=== PATIENT | female | born 1950 | race Caucasian/White ===

== ENCOUNTER 2016-10-31 01:37 | Emergency (ER) | payer BC ==
[2016-10-31 02:18] LABS: BASOPHILS 0.1 % (0.0-2.0); EOSINOPHILS 2.8 % (0-7); HEMATOCRIT 35.1 % (36.0-48.0); HEMOGLOBIN 11.9 g/dL (12-16); IMMATURE GRANULOCYTES 0.3 % (0-5); LYMPHOCYTES 5.5 % (15-50); MCH 29.7 pg (26.0-34.0); MCHC 33.9 g/dL (31.0-37.0); MCV 87.5 fL (80.0-100.0); MONOCYTES 5.8 % (2-11); NEUTROPHILS 85.5 % (40-80); PLATELET COUNT 298 10x3/uL (130-400); RBC 4.01 10x6/uL (4.00-5.40); RDW 13.8 % (11.5-14.5); WBC 14.3 10x3/uL (4.8-10.8)
[2016-10-31 02:28] LABS: ALBUMIN 3.1 g/dL (3.4-5.0); ALKALINE PHOSPHATASE 85 U/L (46-116); ALT (SGPT) 35 U/L (10-68); CALC OSMOLALITY 260 mosm/kg (275-300); CALCIUM 8.8 mg/dL (8.5-10.1); CARBON DIOXIDE 26.5 mmol/L (21.0-32.0); CHLORIDE - SERUM 94 mmol/L (98-107); CREATININE - SERUM 0.7 mg/dL (0.6-1.3); GLUCOSE 151 mg/dL (74-106); POTASSIUM - SERUM 3.8 mmol/L (3.5-5.1); PROTEIN - SERUM 7.4 g/dL (6.4-8.2); SODIUM 129 mmol/L (136-145); UREA NITROGEN 11 mg/dL (7-18); eGFR NON AFRICAN AMERICAN 89 mL/min (90-120)
[2016-10-31 02:36] LABS: C-REACTIVE PROTEIN 15.6 mg/dL (0.0-0.9); THYROID STIMULATING HORMONE 1.63 uIU/mL (0.36-3.74); URIC ACID 3.4 mg/dL (2.6-7.2)
== END 2016-10-31 02:58 | disposition home or self-care (01) ==
LOC: D.ER 01:37
PROVIDERS: Emergency Medicine
DX: M25.50 Pain in unspecified joint (principal); I10 Essential (primary) hypertension; F32.9 Major depressive disorder, single episode, unspecified

== ENCOUNTER 2016-11-10 13:18 | Emergency (ER) | payer BC ==
[2016-11-10 15:10] LABS: BASOPHILS 0.1 % (0.0-2.0); EOSINOPHILS 2.1 % (0-7); HEMOGLOBIN 12.7 g/dL (12-16); IMMATURE GRANULOCYTES 0.6 % (0-5); LYMPHOCYTES 7.2 % (15-50); MCHC 33.4 g/dL (31.0-37.0); MCV 89.6 fL (80.0-100.0); MEAN PLATELET VOLUME 9.2 fL (7.4-10.4); MONOCYTES 5.6 % (2-11); NEUTROPHILS 84.4 % (40-80); PLATELET COUNT 324 10x3/uL (130-400); RBC 4.24 10x6/uL (4.00-5.40); RDW 14.3 % (11.5-14.5); WBC 15.5 10x3/uL (4.8-10.8)
[2016-11-10 15:24] LABS: ALBUMIN 3.3 g/dL (3.4-5.0); ANION GAP 11.4 mmol/L (8-16); BILIRUBIN - TOTAL 0.66 mg/dL (0.2-1.3); CARBON DIOXIDE 28.1 mmol/L (21.0-32.0); CREATININE - SERUM 0.9 mg/dL (0.6-1.3); POTASSIUM - SERUM 4.5 mmol/L (3.5-5.1); PROTEIN - SERUM 7.7 g/dL (6.4-8.2)
[2016-11-10 15:25] LABS: APPEARANCE CLEAR (CLEAR); BILIRUBIN NEGATIVE (NEGATIVE); COLOR YELLOW (YELLOW); GLUCOSE NEGATIVE (NEGATIVE); KETONE NEGATIVE (NEGATIVE); LEUKOCYTE ESTERASE NEGATIVE (NEGATIVE); NITRITE NEGATIVE (NEGATIVE); PROTEIN NEGATIVE (NEGATIVE); UROBILINOGEN NORMAL (NORMAL)
== END 2016-11-10 19:31 | disposition home or self-care (01) ==
LOC: D.ER 13:18
PROVIDERS: Emergency Medicine
DX: M79.662 Pain in left lower leg (principal); M79.661 Pain in right lower leg; M19.91 Primary osteoarthritis, unspecified site; F32.9 Major depressive disorder, single episode, unspecified; I10 Essential (primary) hypertension

== ENCOUNTER 2017-05-02 07:00 | Outpatient (CLI) | payer MEDICARE, OTHER ==
[~2017-05-02] VITALS: Ht 167.6 cm; Wt 113.6 kg
--- NOTE | ~2017-05-02 | HEMODYNAMI ---
PATIENT:ELISA MIGUEL MEDICAL RECORD: [id number] : 54 LOCATION:[facility] ADMISSION DATE: 05/02/17 Generatedon:05/02/201711:07 Patient name: ELISA MIGUEL Patient #: [id number] SSN: : 1950 Date of study: 05/02/2017 Page: Of Hemodynamic Procedure Report Patient Data Patient Demographics Procedure consent was obtained First Name: ELISA Gender: Female Last Name: MYRIAM : 1950 [facility] Initial: K Age: 67 year(s) Patient #: [id number] Race: Unknown Additional ID: [id number] Contact details [address]: [address] [place] [address] State: [place] City: [place] Zip code: [address] Past Medical History Allergies: No known allergies Admission Admission Data Admission Date: 05/02/2017 Admission Time: 7:00 Admit Source: Other Height (in.): 66 BSA: 2.2 (m2) Height (cm.): 167.64 BMI: 40.42 (kg/m2) Weight (lbs.): 250.45 Weight (kg.): 113.6 Lab Results Lab Result Date: 05/02/2017 Lab Result Time: 8:02 Biochemistry Name Units Result Min Max BUN mg/dl 11 --(-*--)-- 7 18 Creatinine mg/dl 0.8 --(-*--)-- 0.6 1.3 CBC Name Units Result Min Max Hematocrit % 32.4 *-(----)-- 42 54 Hemoglobin g/dl 11 *-(----)-- 13.5 17.5 Procedure Procedure Types Cath Procedure Diagnostic Procedure [facility] w/Coronaries Miscellaneous Procedures Moderate Sedation up to 30 minutes Procedure Description Procedure Date Procedure Date: 05/02/2017 Procedure Start Time: 10:50 Procedure End Time: 11:05 Procedure Staff Name Function Shashank Latham MD Performing Physician Drea Finn RT Scrub Sudha Connelly RT Scrub Buffie Daugherty RN Nurse Max Law RT Monitor Procedure Data Cath Procedure Fluoroscopy Diagnostic fluoroscopy Total fluoroscopy Time: 1.3 time: 1.3 min min Diagnostic fluoroscopy Total fluoroscopy dose: 466 dose: 466 mGy mGy Contrast Material Contrast Material Type Amount (ml) Isovue 300 37 Entry Location Entry Primary Successful Side Size Upsize Upsize Entry Closure Succes sful Closure Location (Fr) 1 (Fr) 2 (Fr) Remarks Device Remarks Femoral Right 5 Fr Exoseal artery Estimated blood loss: 5 ml Diagnostic catheters Device Type Used For End Catheter Placement Cordis 5Fr JL 4.0 Procedure Catheter (MP) Cordis 5Fr 3DRC Catheter Procedure (MP) Cordis 5Fr Pigtail Procedure Catheter (MP) Procedure Complications No complications Procedure Medications Medication Administration Route Dosage Oxygen NC 2 l/min 0.9% NaCl I.V. 100 ml/hr Heparin Flush Bag added to field 2 bags (1000units/500ml NS) Versed I.V. 2 mg Fentanyl I.V. 25 mcg Hemodynamics Rest BSA: 2.2 (m2) O2 Consumption: Estimated: 205.13 (ml/min) O2 Consumption indexed: Estimated:93.24 (ml/min/m) Heart Rate: 69 (bpm) Pressure Samples Time Site Value (mmHg) Purpose Heart Use Rate(bpm) 10:59 LV 124/-2,19 EDP 75 11:00 AO 127/56(85) Pullback 70 11:00 LV 109/9,15 Pullback 70 Gradients Valve Time Site 1 Site 2 Mean SEP/DFP Peak To Heart Use (mmHg) (sec/min) Peak Rate (mmHg) (bpm) Aortic 11:00 LV AO 0 9 0 70 109/9,15 127/56(85) Calculations Valve P-P Mean Valve Index Valve Source Name Gradient Area Flow (cm2) Aortic 0 0 0 0 Snapshots Pre Cath Intra NCS Post Cath Vital Signs Time Heart Resp SPO2 etCO2 BR5srde NIBP (mmHg) Rhythm Pain Sedation Rate (ipm) (%) (mmHg) (mmHg) Status Level (bpm) 10:34:57 63 46 100 0 0 141/81(116) NSR 0 (11) 10(A) , No pain 10:41:51 65 14 100 0 0 143/73(125) NSR 0 (11) 10(A) , No pain 10:46:13 71 14 100 0 0 137/72(117) NSR 0 (11) 9(A) , No pain 10:50:37 65 16 100 0 0 137/71(117) NSR 0 (11) 9(A) , No pain 10:54:57 63 27 100 0 0 129/67(108) NSR 0 (11) 10(A) , No pain 10:59:15 65 16 99 0 0 128/72(108) NSR 0 (11) 10(A) , No pain 11:03:33 67 18 100 0 0 128/73(108) NSR 0 (11) 10(A) , No pain Medications Time Medication Route Dose Verified Delivered Reason Notes Effec tiveness by by 10:30:57 Oxygen NC 2 Ishaan Ishaan Per l/min [place] Osborne physician RN RN 10:31:18 0.9% NaCl I.V. 100 Ishaan Ishaan Per ml/hr [place] Osborne physician RN RN 10:31:39 Heparin Flush added 2 Ishaan Ishaan used for Bag to bags Lorigan Keshaigan procedure (1000units/500ml field RN RN NS) 10:50:37 Versed I.V. 2 mg Ishaan Ishaan for Lorigan Lorigan sedation RN RN 10:50:56 Fentanyl I.V. 25 Ishaan Ishaan for mcg Lorigan Lorigan sedation RN companion caregiver Log Time Note 9:44:08 Informed consent obtained and on chart 9:44:12 Admit Source: Other 9:44:29 Diagnostic Cath status Elective 9:44:30 Time tracking: Regular hours 9:44:34 Plan of Care:Hemodynamics will remain stable., Cardiac rhythm will remain stable., Comfort level will be maintained., Respiratory function will remain adequate., Patient/ family verbilizes understanding of procedure., Procedure tolerated without complication., Recovers from procedure without complications.. 9:45:29 H&P Date Dictated: 04/18/2017 Within 30 days and on chart., H&P Addendum completed by physician on day of procedure. (MUST COMPLETE FOR ALL OUTPATIENTS). 10:17:45 Sudha Connelly RT(R) sent for patient. Start room use. 10:21:31 Lab Result : Hemoglobin 11 g/dl 10:21:31 Lab Result : Hematocrit 32.4 % 10:21:31 Lab Result : BUN 11 mg/dl 10:21:31 Lab Result : Creatinine 0.8 mg/dl 10:21:38 Patient Weight : 250.45 lbs 10:21:44 Patient Height : 66 inches 10:23:02 Patient received from Pre/Post Procedure Room to CCL 1 Alert and oriented. Tansferred to table in Supine position. 10:23:03 Warm blankets applied, and cem hugger turned on for patient comfort. 10:23:03 Correct patient and procedure confirmed by team. 10:23:04 ECG and BP/O2 sat monitors applied to patient. 10:23:06 Pre-procedure instructions explained to patient. 10:23:06 Pre-op teaching completed and patient verbalized understanding. 10:23:09 Family in waiting room. 10:23:10 Patient NPO since Midnight. 10:23:18 Patient allergic to No known allergies 10:23:22 Is the patient allergic to Iodine/contrast media? No. 10:30:57 Oxygen 2 l/min NC was administered by Ishaan Osborne RN; Per physician; 10:31:18 0.9% NaCl 100 ml/hr I.V. was administered by Ishaan Osborne RN; Per physician; 10:31:39 Heparin Flush Bag (1000units/500ml NS) 2 bags added to field was administered by Ishaan Osborne RN; used for procedure; 10:33:26 Vital chart was started 10:36:17 Is patient on blood thinner?No 10:36:19 Patient diabetic? No. 10:36:22 Previous problem with sedation/anesthesia? Yes Nausea 10:36:23 Snore? Yes 10:36:24 Sleep apnea? Yes 10:36:25 Deviated septum? No 10:36:26 Opens mouth fully? Yes 10:36:27 Sticks out tongue? Yes 10:36:28 Airway obstruction? No ? 10:36:31 Dentures? No ? 10:36:35 Pre procedure: right dorsailis pedis pulse 2+ Normal; easily identifiable; not easily obliterated 10:36:36 Modified Marcial's test Ulnar > 7 seconds. 10:36:39 Patient pain scale 0/10 ?. 10:36:44 IV patent on arrival in left hand with 0.9% NaCl at [facility]. 10:36:49 Lab results completed and on chart. 10:36:52 Right groin area was prepped with chlora-prep and draped in sterile fashion 10:36:53 Alarms reviewed by R. N. 10:36:53 Sharps counted by scrub and verified by R.N. 10:36:56 Use device set Femoral Dx 10:36:57 Acist Syringe opened to sterile field. 10:36:57 Bag Decanter opened to sterile field. 10:36:58 Medline Cath Pack opened to sterile field. 10:36:58 St Ector 260cm J .035 wire opened to sterile field. 10:36:59 Acist Hand Control opened to sterile field. 10:37:00 Acist Manifold opened to sterile field. 10:37:00 Diagnostic Infinity 5Fr Multipack catheter opened to sterile field. 10:37:01 Tegaderm 4 x 4 opened to sterile field. 10:37:10 Merit Prelude Femoral Sheath (NO COST SUPPLY) opened to sterile field. 10:38:27 Baseline sample Acquired. 10:42:51 Zero performed for pressure channel P1 10:44:18 Cook 4Fr Micropuncture ([id number]) opened to sterile field. 10:46:19 Physician arrived 10:46:19 --------ALL STOP TIME OUT------ 10:46:20 Final Timeout: patient, procedure, and site verified with staff and physician. All members of the team are in agreement. 10:46:22 Right groin site verified by team. 10:46:25 Physical assessment completed. ASA score P 2 - A patient with mild systemic disease as per Shashank Latham MD. 10:46:27 Sedation plan: IV Moderate Sedation Versed, Fentanyl 10:50:19 Procedure started. 10:50:19 Full Disclosure recording started 10:50:22 Local anesthetic to right femoral artery with Lidocaine 2% by Shashank Latham MD.INITIAL ACCESS ONLY 10:50:37 Versed 2 mg I.V. was administered by Ishaan Osborne RN; for sedation; 10:50:56 Fentanyl 25 mcg I.V. was administered by Ishaan Osborne RN; for sedation; 10:52:30 A 5 Fr sheath was inserted into the Right Femoral artery 10:52:55 A Cordis 5Fr JL 4.0 Catheter (LICHA) was advanced over the wire and used for Procedure. 10:54:34 LCA angiography performed. 10:55:55 Catheter exchanged over wire. 10:56:04 A Cordis 5Fr 3DRC Catheter (MP) was advanced over the wire and used for Procedure. 10:57:51 RCA angiography performed. 10:57:57 Catheter exchanged over wire. 10:58:00 A Cordis 5Fr Pigtail Catheter (MP) was advanced over the wire and used for Procedure. 10:58:47 LV gram done using MOLINA 10:58:52 Injector settings: Ml/sec: 12, Volume: 8, 10:58:53 LV hemodynamics recorded. 11:00:19 EF : 60 % 11:00:56 Catheter removed. 11:01:59 Cordis 5Fr Exoseal opened to sterile field. 11:02:09 Sheath removed intact; hemostasis achieved with Exoseal to the Right Femoral artery. 11:02:10 Procedure ended.(Physican Out) 11:03:27 Fluoroscopy time 01.30 minutes. 11:03:31 Fluoroscopy dose: 466 mGy 11:03:31 Flurop Dose total: 466 11:03:35 Contrast amount:Isovue 300 37ml. 11:03:36 Sharps counted by scrub and verified by R.N. 11:03:38 Insertion/operative site no bleeding no hematoma. 11:03:40 Post-op/insertion site Right Femoral artery dressed using a 4 x 4 and Tegaderm. 11:03:43 Post right femoral artery:stable, soft, clean and dry 11:03:45 Post Procedure Pulses reassessed and unchanged 11:03:47 Post-procedure physical assessment completed. ASA score P 2 - A patient with mild systemic disease as per Shashank Latham MD. 11:03:50 Post procedure rhythm: unchanged. 11:03:52 Estimated blood loss: 5 ml 11:03:53 Post procedure instruction explained to patient.Patient verbalizes understanding. 11:03:54 Patient needs reinforcement of post procedure teaching. 11:05:10 Procedure type changed to Cath procedure, Diagnostic procedure, LHC, LHC w/Coronaries, Miscellaneous Procedures, Moderate Sedation up to 30 minutes 11:05:30 Procedure and supply charges have been captured, reviewed, submitted and are correct. 11:05:32 Procedure Complication : No complications 11:05:33 Vital chart was stopped 11:05:34 See physician's report for complete and final results. 11:05:35 Report given to Pre/Post Procedure Room. 11:05:38 Patient transfered to Pre/Post Procedure Room with Stretcher. 11:05:40 Procedure ended. 11:05:40 Full Disclosure recording stopped 11:05:43 End room use (Document Last) Device Usage Item Name Manufacture Quantity Catalog Hospital Part Current Minimal Lot# / Number Charge Number Stock Stock Serial# Code Acist Syringe Acist 1 61423 310872 [id number] [id number] 20 [employer] Bag Decanter Microtek 1 2002S 452378 20431 580618 5 [employer] Medline Cath Cardinal 1 [id number] 08700 440929 [address] E[address] St Ector 1 770935 015253 381539 018450 30 J .035 wire Acist Hand Acist 1 79410 144923 448856 344051 5 Control [employer] Inc Acist Acist 1 32019 965097 054194 163954 5 Manifold [employer] Inc Diagnostic Cardinal 1 [id number] 463330 64558 829900 30 Infinity 5Fr Health Multipack catheter Tegaderm 4 x 3M 1 1626W 653987 312794 297101 5 4 Merit Prelude Merit 1 300148 818238 5 Femoral Medical Sheath (NO COST SUPPLY) Cook 4Fr Cook Medical 1 [id number] 772445 122688 454957 5 Micropuncture (I31693) Cordis 5Fr JL Cardinal 1 [id number] 5 4.0 Catheter Health (MP) Cordis 5Fr Cardinal 1 714737 5 3DRC Catheter Health (MP) Cordis 5Fr Cardinal 1 975633 5 Pigtail Health Catheter (MP) Cordis 5Fr Cardinal 1 EX500 468785 431407 295164 10 [facility] LifeDox Signature Audit [place] Stage Time Signature Unsigned Intra-Procedure 05/02/2017 Max Law 11:07:22 AM RT(R) Signatures Monitor : Max Law RT Signature : Date : Time : [id number] [place] [address]
[2017-05-02] MEDS ORDERED: PREDNISONE5 MG PO (07:41)
[2017-05-02] MEDS ORDERED: HYZAAR 100-25 T1 TAB PO (07:42)
[2017-05-02] MEDS ORDERED: PLAQUENIL200 MG PO (07:42)
[2017-05-02] MEDS ORDERED: ZANTAC150 MG PO (07:42)
[2017-05-02] MEDS ORDERED: CLARITIN 10 MG10 MG PO (07:43)
[2017-05-02] MEDS ORDERED: ZOLOFT50 MG PO (07:43)
[2017-05-02 07:52] VITALS: BP 126/60; Ht 167.6 cm; Wt 113.6 kg
[2017-05-02 07:54] LABS: BASOPHILS 0.4 % (0-2); EOSINOPHILS 1.8 % (0-7); HEMATOCRIT 32.4 % (36.0-48.0); IMMATURE GRANULOCYTES 0.3 % (0-5); LYMPHOCYTES 16.7 % (15-50); MCH 30.1 pg (26.0-34.0); MCV 88.5 fL (80.0-100.0); MEAN PLATELET VOLUME 9.3 fL (7.4-10.4); MONOCYTES 9.4 % (2-11); NEUTROPHILS 71.4 % (40-80); RBC 3.66 10x6/uL (4.00-5.40); RDW 14.1 % (11.5-14.5); WBC 7.3 10x3/uL (4.8-10.8)
[2017-05-02 08:02] LABS: PLATELET COUNT 229 10x3/uL (130-400)
[2017-05-02 08:12] LABS: CALC OSMOLALITY 265 mosm/kg (275-300); CALCIUM 9.1 mg/dL (8.5-10.1); CARBON DIOXIDE 28.7 mmol/L (21.0-32.0); CHLORIDE - SERUM 97 mmol/L (98-107); CREATININE - SERUM 0.8 mg/dL (0.6-1.3); GLUCOSE 84 mg/dL (74-106); POTASSIUM - SERUM 3.9 mmol/L (3.5-5.1); SODIUM 134 mmol/L (136-145); UREA NITROGEN 11 mg/dL (7-18); eGFR NON AFRICAN AMERICAN 76 mL/min (90-120)
--- NOTE | 2017-05-02 11:30 | NUR ---
RIGHT GROIN CDI, NO HEMATOMA OR BLEEDING AT SITE, SOFT TO TOUCH, VSS
--- NOTE | 2017-05-02 12:00 | NUR ---
NO CHANGES IN RIGHT GROIN, VSS, DENIES NEEDS
--- NOTE | 2017-05-02 13:20 | NUR ---
UP TO RESTROOM-VOID, IV D'C WITH CATH TIP INTACT
--- NOTE | 2017-05-02 14:00 | NUR ---
WRITTEN AND VERBAL D'C INSTRUCTIONS GIVEN TO PT AND -VERBAL UNDERSTANDING NOTED. D'C HOME WITH . DENIES PAIN OR FURTHUR NEEDS
== END 2017-05-02 14:00 | disposition home or self-care (01) ==
LOC: D.CATH 07:00
PROVIDERS: Internal Medicine Cardiovascular Disease
DX: I20.9 Angina pectoris, unspecified (principal); R94.30 Abnormal result of cardiovascular function study, unspecified; R07.2 Precordial pain; R94.31 Abnormal electrocardiogram [ECG] [EKG]; R53.83 Other fatigue; R06.09 Other forms of dyspnea; Z01.812 Encounter for preprocedural laboratory examination

== ENCOUNTER 2017-10-08 05:24 | Day surgery (SDC) | payer MEDICARE, OTHER ==
[2017-10-07 09:41] LABS: BASOPHILS 0.3 % (0-2); EOSINOPHILS 2.1 % (0-7); HEMATOCRIT 35.5 % (36.0-48.0); HEMOGLOBIN 11.8 g/dL (12-16); IMMATURE GRANULOCYTES 0.2 % (0-5); LYMPHOCYTES 13.8 % (15-50); MCH 29.7 pg (26.0-34.0); MCHC 33.2 g/dL (31.0-37.0); MCV 89.4 fL (80.0-100.0); MEAN PLATELET VOLUME 9.2 fL (7.4-10.4); MONOCYTES 10.4 % (2-11); NEUTROPHILS 73.2 % (40-80); RBC 3.97 10x6/uL (4.00-5.40); WBC 6.1 10x3/uL (4.8-10.8)
[2017-10-07 09:46] LABS: PLATELET COUNT 301 10x3/uL (130-400)
[2017-10-07 09:53] LABS: INR 0.97 (0.85-1.17); PROTIME 12.5 SECONDS (11.6-15.0)
[2017-10-07 10:15] LABS: CALC OSMOLALITY 263 mosm/kg (275-300); CALCIUM 9.5 mg/dL (8.5-10.1); CARBON DIOXIDE 29.8 mmol/L (21.0-32.0); CHLORIDE - SERUM 93 mmol/L (98-107); CREATININE - SERUM 0.8 mg/dL (0.6-1.3); GLUCOSE 96 mg/dL (74-106); POTASSIUM - SERUM 3.7 mmol/L (3.5-5.1); SODIUM 131 mmol/L (136-145); UREA NITROGEN 15 mg/dL (7-18); eGFR NON AFRICAN AMERICAN 76 mL/min (90-120)
[~2017-10-08] VITALS: Ht 167.6 cm; Wt 99.8 kg
--- NOTE | ~2017-10-08 | OP ---
PATIENT NAME: ELISA MIGULE MEDICAL RECORD: [id number] :54 LOCATION:[facility] ADMISSION DATE: SURGEON: DONNA RUBIO MD DATE OF OPERATION: 10/08/2017 PREOPERATIVE DIAGNOSIS: Lumbar spinal stenosis with foraminal stenosis, L4-L5, right. PROCEDURE: Lumbar laminectomy, medial facetectomy and foraminotomy at L4-L5, right with METRx retractor. SURGEON: Donna Rubio MD DESCRIPTION AND TECHNIQUE: After induction of general endotracheal anesthesia, the patient was rolled prone on a Shaka frame. Lumbar spine was prepped and draped in usual sterile fashion. Fluoroscopic x-ray and spinal needle localized at L4-L5 interspace on the right side. A stab incision was created with #11 blade and series of dilators was used to advance a METRx retractor at L4-L5 interspace on the right side. The level was confirmed with fluoroscopic x-ray. A microscope and Midas Rusty drill were used to perform a laminectomy, medial facetectomy, and foraminotomy at L4-L5 on the right. Hypertrophied ligamentum flavum was removed with Cloward rongeurs, foraminotomy was carried out on the right with Cloward rongeurs. Following this, the ligamentum flavum which was hypertrophied was removed within the foramen and lateral recess. This decompressed the L5 nerve root well. The disc space was inspected and found to cause no significant nerve root compression. Meticulous hemostasis was maintained throughout the wound. The wound was irrigated with copious amounts of Ancef irrigant solution. The fascia was closed with 2-0 Vicryl suture, the subdermal layer was closed with 3-0 Vicryl suture, skin was closed with lcaudio. A sterile dressing was applied to the wound. The patient was awakened in good condition and taken to recovery. All counts were reported as correct. Estimated blood loss was 35 cc. TRANSINT:[id number] Voice Confirmation ID: [id number] DOCUMENT ID: [id number] DONNA RUBIO MD CC: [id number] DICTATION DATE: 10/15/171721 POCKET ASSEMBLER: 10/15/17 175 [facility] 10/08/17 [place] [address]
[~2017-10-08 05:24] MED LIST: ALENDRONATE SOD70 MG PO; CLARITIN 10 MG10 MG PO; HYZAAR 100-25 T1 TAB PO; PLAQUENIL200 MG PO; PREDNISONE2.5 MG PO; ROBAXIN500 MG PO; STOOL SOFTENER100 M1 PO; ULTRAM50 MG PO; VITAMIN D2000 UNIT PO; ZANTAC150 MG PO; ZOLOFT50 MG PO
[2017-10-08 06:52] VITALS: BP 139/67; Ht 167.6 cm; Wt 99.8 kg
== END 2017-10-08 15:30 | disposition home or self-care (01) ==
LOC: D.OPS 05:24 → D.PAN 07:30 → D.OPS 07:30
PROVIDERS: Anesthesiology
DX: M48.061 Spinal stenosis, lumbar region without neurogenic claudication (principal); I10 Essential (primary) hypertension; G47.30 Sleep apnea, unspecified; K21.9 Gastro-esophageal reflux disease without esophagitis; Z01.812 Encounter for preprocedural laboratory examination

== ENCOUNTER 2018-03-04 13:11 | Emergency (ER) | payer MEDICARE, OTHER ==
[~2018-03-04] VITALS: Ht 167.6 cm; Wt 97.7 kg
[2018-03-04 13:19] VITALS: BP 125/59; Ht 167.6 cm; Wt 97.7 kg
[2018-03-04] MEDS ORDERED: POTASSIUM99 M1 PO (13:23)
[2018-03-04 14:13] LABS: BASOPHILS 0.4 % (0-2); EOSINOPHILS 0.6 % (0-7); HEMATOCRIT 32.9 % (36.0-48.0); HEMOGLOBIN 11.6 g/dL (12-16); IMMATURE GRANULOCYTES 0.2 % (0-5); LYMPHOCYTES 14.9 % (15-50); MCH 31.7 pg (26.0-34.0); MCHC 35.3 g/dL (31.0-37.0); MCV 89.9 fL (80.0-100.0); MEAN PLATELET VOLUME 9.1 fL (7.4-10.4); MONOCYTES 7.8 % (2-11); NEUTROPHILS 76.1 % (40-80); RBC 3.66 10x6/uL (4.00-5.40); RDW 13.3 % (11.5-14.5); WBC 4.9 10x3/uL (4.8-10.8)
[2018-03-04 14:25] LABS: PLATELET COUNT 185 10x3/uL (130-400)
[2018-03-04 14:28] LABS: ALBUMIN 3.8 g/dL (3.4-5.0); ALKALINE PHOSPHATASE 69 U/L (46-116); ALT (SGPT) 21 U/L (10-68); BILIRUBIN - TOTAL 0.54 mg/dL (0.2-1.3); CALC OSMOLALITY 250 mosm/kg (275-300); CALCIUM 8.8 mg/dL (8.5-10.1); CARBON DIOXIDE 28.6 mmol/L (21.0-32.0); CHLORIDE - SERUM 94 mmol/L (98-107); CREATININE - SERUM 0.7 mg/dL (0.6-1.3); GLUCOSE 86 mg/dL (74-106); POTASSIUM - SERUM 4.4 mmol/L (3.5-5.1); PROTEIN - SERUM 7.4 g/dL (6.4-8.2); SODIUM 126 mmol/L (136-145); UREA NITROGEN 10 mg/dL (7-18); eGFR NON AFRICAN AMERICAN 89 mL/min (90-120)
[2018-03-04 14:32] LABS: INR 1.06 (0.85-1.17); PROTIME 13.4 SECONDS (11.6-15.0)
[2018-03-04 14:41] LABS: CKMB 2.4 U/L (0.0-3.6); CREATINE KINASE 166 UL (21-215); PRO BNP 137 pg/mL (0-125)
[2018-03-04 14:50] LABS: TROPONIN-I < 0.017 ng/mL (0.000-0.060)
[2018-03-04] MEDS ORDERED: OMEPRAZOLE40 MG PO (16:35)
== END 2018-03-04 17:18 | disposition other institution (70) ==
LOC: D.ER 13:11
PROVIDERS: Family Medicine
DX: R07.9 Chest pain, unspecified (principal); I10 Essential (primary) hypertension